=== PATIENT | male | born 1975 | race Caucasian/White ===

== ENCOUNTER 2021-12-12 21:14 | Emergency (ER) | payer BC, SELFPAY ==
[2021-12-12 21:15] VITALS: BP 170/100; PULSE 105; RESP 18; TEMP 37.3; O2SAT 100; BMI 36.9
[2021-12-12 21:17] VITALS: BP 170/100; PULSE 105; RESP 18; TEMP 37.3; O2SAT 100
--- NOTE | 2021-12-12 21:58 | ED.VIS.GI ---
HPI HPI - GI History of Present Illness Chief Complaint: Abd Pain Narrative Narrative: 46-year-old male presenting with lower abdominal cramping and bloating. He states he had a lot of gas today. He states that this started this morning. Last evening he states he ate a cheeseburger, cheesy potatoes, corn on the cob. Today he woke up with gas and bloating. Today for lunch he decided to have a Micron[place] sausage sandwich which made his symptoms worse. He has mild nausea without vomiting. He admits to several episodes of diarrhea. He states that having a bowel movement makes it improved but that he gets gas again. He has tried nothing to alleviate his symptoms. He denies urinary complaints. No fevers or chills. He is concerned because his father had a history of diverticulitis. PFSH PFSH Home Medications amoxicillin 875 mg-potassium clavulanate 125 mg tablet 1 tab PO Q12H #24 tabs 12/12/21 [Rx Last Taken Unknown] ondansetron 4 mg disintegrating tablet 4 mg PO Q8H PRN nausea and vomiting #14 tabs 12/12/21 [Rx Last Taken Unknown] Allergy/AdvReac Type Severity Reaction Status Date / Time No Known Allergies Allergy Verified 12/12/21 21:17 Social History Smoking Status: Never smoker ROS ROS ED Constitutional Constitutional ED: Denies chills, fever(s) or subjective ENT ENT ED: Denies rhinorrhea or sore throat Cardiovascular Cardiovascular: Denies palpitations Respiratory/Chest Respiratory/Chest: Denies cough or dyspnea Gastrointestinal Gastrointestinal: Reports abdominal pain, diarrhea and nausea; Denies vomiting Genitourinary Genitourinary ED: Denies dysuria or hematuria Musculoskeletal Musculoskeletal: Denies arthralgias or back pain Integumentary Denies abscess Neurologic Neurologic: Denies headache(s) or paresthesias Psychiatric Psychiatric: Denies anxiety or depression EXAM Physical Exam Const Vital Signs: 12/12/21 21:15 12/12/21 21:17 Temperature 99.2 F H 99.2 F H Temperature Source Temporal Temporal Pulse Rate 105 H 105 H Respiratory Rate 18 18 Blood Pressure 170/100 H 170/100 H Blood Pressure Mean 123 Pulse Ox 100 100 Oxygen Delivery Method Room Air Room Air Positive well nourished General Appearance ED: NAD; Negative for pallor HEENT Reports moist mucous membranes and dry mucous membranes normocephalic and atraumatic Mouth ED: Yes dry mucous membranes Mouth: dry mucous membranes Eyes PERRL and EOMs intact bilaterally Resp normal respiratory effort and clear to auscultation bilaterally GI GI Narrative: Mild suprapubic tenderness. Abdomen soft. No peritoneal signs. Palpation: Negative for guarding, rigid or hepatomegaly Back/Spine no CVA tenderness Neuro CN's II-XII intact bilaterally Sensorium / Orientation: alert and oriented to person Motor Exam: strength 5/5 throughout Psych mental status grossly normal and thought process normal Skin General Skin Exam: Negative for jaundice or pallor MDM MDM MDM Narrative Medical decision making narrative: CBC shows a leukocytosis of 13.5. Hemoglobin hematocrit are stable. Platelets are normal. Renal function and electrolytes within normal limits. Because he has elevated white blood cell count I will obtain a CT of the abdomen pelvis. Patient was given Zofran and Bentyl initially. CT of the abdomen pelvis shows acute uncomplicated sigmoid diverticulitis. Patient counseled on findings. We talked about diet changes and he is college and standing. He started Augmentin with first dose in the ED. He will be given a prescription for this and Zofran for home.. He was given follow-up with Dr. Case. Patient over discharge. Impression: 1. Acute uncomplicated sigmoid diverticulitis 2. Leukocytosis Lab Data Attestation: I reviewed the patient's lab results. Labs: Laboratory Results - last 24 hr 12/12/21 12/12/21 21:50 21:50 WBC 13.5 H RBC 4.87 Hgb 14.4 Hct 43.3 MCV 88.9 MCH 29.6 MCHC 33.3 RDW Std Deviation 41.2 RDW Coeff of Girish 12.5 Plt Count 249 MPV 10.4 Immature Gran % (Auto) 0.500 Neut % (Auto) 77.7 H Lymph % (Auto) 11.8 L [place] % (Auto) 8.1 Eos % (Auto) 1.6 Baso % (Auto) 0.3 Absolute Neuts (auto) 10.5 H Absolute Lymphs (auto) 1.60 Nucleated RBC % 0 Sodium 139 Potassium 3.8 Chloride 106 Carbon Dioxide 27.0 Anion Gap 6 BUN 18 Creatinine 0.97 Estim Creat Clear Calc 97.18 Est GFR (MDRD) Af Amer 109 Est GFR (MDRD) Non-Af 90 BUN/Creatinine Ratio 18.6 Glucose 124 H Calcium 8.7 Radiography Diagnostic Testing: Clinical Impression(s) from Imaging Studies Abdomen/Pelvis CT 12/12/21 22:24 IMPRESSION: Acute uncomplicated sigmoid diverticulitis. Electronically Signed: Domingo Aponte DO at 23:03 EDT Reading Location ID and State: [facility] / [place] Tel , Service support , Discharge Plan Triage Chief Complaint: Abd Pain ED Provider: Bernard Wellington Dx/Rx/DC Orders Instructions: ED Diverticulitis Prescriptions: New amoxicillin-pot clavulanate 875-125 mg tablet 1 tab PO Q12H Qty: 24 0RF ondansetron 4 mg tablet,disintegrating 4 mg PO Q8H PRN (Reason: nausea and vomiting) Qty: 14 0RF Primary Care Provider: Care Physician,No Primary Referrals: Dread Case DO [STAFF PHYSICIAN] - 3-5 Days Care Physician,No Primary [Primary Care Provider] - Disposition Disposition: Home, Self Care
[2021-12-12] MEDS: Ondansetron ODT 4 MG Tablet PO (22:10)
[2021-12-12] MEDS: Dicyclomine 10 MG Capsule 20 MG PO (22:10)
[2021-12-12 22:14] LABS: Absolute Neutrophil Count 10.5 X10^3/uL (2.0-7.7); Basophil# 0.04 X10^3/uL; Basophil% 0.3 % (0-1); Eosinophil# 0.21 X10^3/uL; Eosinophils% 1.6 % (0-5); Hematocrit 43.3 % (40-54); Hemoglobin 14.4 g/dL (13.0-16.5); Lymphocyte % 11.8 % (19-41); Mean Corp Hgb Conc 33.3 g/dL (32-36); Mean Corpuscular Hgb 29.6 pg (27.0-32.0); Mean Corpuscular Volume 88.9 fL (80-94); Mean Platelet Vol. 10.4 fl (6.2-12.0); Monocyte# 1.09 X10^3/uL; Monocyte% 8.1 % (0-10); NRBC Flagged by Analyzer 0 % (0-5); Neutrophil % 77.7 % (47-70); Platelet Count 249 K/mm3 (150-450); RBC Distribution Width CV 12.5 % (11.6-14.6); RBC Distribution Width SD 41.2 fl (35.1-43.9); Red Blood Count 4.87 M/mm3 (4.6-6.2); White Blood Count 13.5 K/mm3 (4.4-11.0)
[2021-12-12 22:20] LABS: Anion Gap 6 (5-15); BUN 18 mg/dL (7-18); BUN/Creat Ratio 18.6 RATIO (10-20); Calcium,Total 8.7 mg/dL (8.5-10.1); Chloride 106 mmol/L (98-107); Creatinine, Serum 0.97 mg/dL (0.70-1.30); EST Glomerular Filtration Rate 90 mL/min (>60); Est Glom Filt Rate - Afr Amer 109 mL/min (>60); Estimated Creatinine Clearance 97.18 ml/min; Glucose 124 mg/dL (74-106); Potassium 3.8 mmol/L (3.5-5.1); Sodium Level 139 mmol/L (136-145)
--- NOTE | 2021-12-12 22:24 | CT_ITS ---
STUDY: CT ABDOMEN AND PELVIS WITH CONTRAST REASON FOR EXAM: Male, 46 years old. abdominal pain RADIATION DOSAGE (If Supplied By Facility): CTDIvol = ( 16.56 ) mGy, DLP = ( 1268.57 ) mGycm TECHNIQUE: Transaxial images were obtained from the dome of the diaphragm to the symphysis pubis without oral contrast. IV 100mL Isovue-370 was administered. Sagittal and coronal images were reconstructed. Individualized dose optimization techniques were used for this CT. COMPARISON: None. FINDINGS: The visualized lung bases are unremarkable. The visualized portions of the heart are within normal limits. Normal liver. Normal gallbladder and extrahepatic biliary system. Normal spleen. Normal pancreas. Normal bilateral adrenal glands. Normal right kidney. Normal left kidney. There is a small hiatal hernia. Normal small intestine. There is diverticulosis, with thickening of the colon wall, and pericolonic inflammation changes consistent with acute diverticulitis. The appendix is visualized and appears normal. Normal abdominal aorta. Normal inferior vena cava. Normal retroperitoneum. Normal urinary bladder. Normal abdominal wall. Normal osseous structures. CT/Abdomen/Pelvis W IV Cont ONLY IMPRESSION: Acute uncomplicated sigmoid diverticulitis. Electronically Signed: Domingo Aponte DO at 23:03 EDT ,
[2021-12-12 23:15] VITALS: PULSE 88; RESP 14; O2SAT 99
[2021-12-12] MEDS: Amox/Clavulanate 875 MG Tablet PO (23:31)
== END 2021-12-12 23:51 | disposition home or self-care (01) ==
PROVIDERS: Emergency Provider Student in an Organized Health Care Education/Training Program; Visit Provider Student in an Organized Health Care Education/Training Program
DX: K57.32 Diverticulitis of large intestine without perforation or abscess without bleeding (principal); D72.829 Elevated white blood cell count, unspecified
CPT/HCPCS: 74177; 80048; 85025; 99283; Q9967; A4216

== ENCOUNTER 2022-04-05 12:11 | Day surgery (SDC) | payer BC, SELFPAY ==
[2022-04-05] VITALS (9 sets, daily range): BP systolic 128–183; BP diastolic 95–123; PULSE 61–109; RESP 16–18; TEMP 36.4–36.8; O2SAT 98–100; BMI 33.2
[2022-04-05] MEDS: Lactated Ringers 1,000 ML 15 ML IV (12:57)
--- NOTE | 2022-04-05 13:15 | COLBX_PTH ---
PATIENT: JOHN KIRBY LOC: EN U#:[id number] AGE/SX: 46/M ROOM: RE04/05/[address]: Dr. Dread Case DO : 1975 BED: DIS: 04/05/2022 SPEC #: [id number] RECD: 04/05/22 16:13 STATUS: KELLIE NADIRA #: [id number] SACHA: 04/05/22 13:[address]: Dread Case DEPT: SURGICAL PATHOLOGY RECD BY: Daiana Hidalgo ENTERED: 04/06/22 08:27 SP TYPE: COLON BX OTHR DR: Eusebia Primary Care Phys Tissues: A - Sigmoid colon biopsy B - Rectum, NOS Procedures: Surgery Specimen Level IV HEADER OPERATION: Colonoscopy (MAC) and biopsy PRE-OP DIAGNOSIS: Diverticulitis TISSUE SUBMITTED: A ? Sigmoid colon biopsy, B ? Rectal polyp MICROSCOPIC DIAGNOSIS A. Sigmoid colon, biopsy: No pathologic change. B. Rectal polyp, biopsy: Lymphangiectasia. AM:rick 04/07/2022 MICROSCOPIC DESCRIPTION Slides are reviewed. GROSS DESCRIPTION A - Received in fixative is one container labeled with the patient's name and designated sigmoid colon biopsy. The specimen consists of two irregular fragments of light zaragoza soft tissue that in aggregate measure 0.6 x 0.3 x 0.1 cm. The specimen is totally submitted in one cassette. B - Received in fixative is one container labeled with the patient's name and designated rectal polyp. The specimen consists of multiple irregular fragments of light zaragoza soft tissue that in aggregate measure 1 x 0.3 x 0.1 cm. The specimen is totally submitted in one cassette. / AM:rick 04/06/2022 TC:5 CPT: 91781 x2
--- NOTE | 2022-04-05 13:17 | HP.PCM_ITS ---
History and Physical Date of Admission: 04/05/22 JOHN KIRBY, is a 46 M who presents to the office today for f/u ED visit for diverticulitis on 12/12/21. He had presented with abdominal cramping, bloating, gas, diarrhea. He was treated with augmentin. This was his first bout of diverticulitis. 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 He has changed his diet--no red meat, has changed to chicken, looked up diet recommendations online. His father had diverticulitis, needed surgery for it. Pt denies hx of constipation, was having 2-3 BMs per day. Now says one BM per day, stools are soft--thinks fewer BMs since he is eating less. BM soon after eating greasy foods now, some urgency. Denies abdominal pain but he has twinges of the pain he had at the ED, has had about 3 bouts since the ED. Heartburn maybe once a month at the most. Denies nausea, vomiting, dysphagia. No diarrhea or constipation, no melena or hematochezia. 12/12/21 CT/Abdomen/Pelvis W IV Cont ONLY IMPRESSION: Acute uncomplicated sigmoid diverticulitis. ROS Const Constitutional: Positive for weight change; No fatigue ENT ENT: No difficulty swallowing Gastro GI: Positive for abdominal pain, bloating, change in bowel habits, diarrhea and excessive flatus; No belching, change in stool character, coffee ground emesis, constipation, cramping, heartburn, difficulty swallowing, feeling full early, incontinent of stools, Vomiting blood/hematemesis, Blood in stool, loose stools, Black,tarry stools, nausea/dyspepsia, pain with swallowing, vomiting or other Musc Musculoskeletal: Positive for stiffness; No joint pain Skin Skin: No yellowing of the eye or itchy eyes Psych Psychiatric: No anxiety and No depression Endo Endocrine: Positive for weight change; No fatigue Aller/Imm Allergy/Immunologic: No itchy eyes Rico/Lymp Hematologic/Lymphatic: No easy bleeding or easy bruising Exam Const General: cooperative, healthy appearing and no acute distress Nutritional Appearance: obese Orientation: alert, awake and oriented x3 HENMT Head: normal to inspection Eyes General: appearance normal, both eyes and all related structures Chest Chest palpation & inspection: normal inspection of the chest Resp Effort & Inspection: normal respiratory effort GI Inspection: normal to inspection Palpation: soft, no masses and nontender Skin General: no jaundice Quality Reporting Tobacco Screening ([facility]) Smoking Status: Never smoker Assessment and Plan Assessment and Plan (1) Diverticulitis: ?Status:?Acute ?Plan: Discussed diagnosis, discussed possible SCAD Biochemical w/u--blood and stool tests Rx mesalamine 2.4 g daily x 4 wks, then 1.2 g daily x 4 wks Take daily probiotic Schedule colonoscopy ? ? ? Orders: Orders CRP 01/31/22 K57.92 - Diverticulitis of inte malgorz[place], part unspecified, without perforation or abscess without bleeding ? Erythrocyte Sed Rate 01/31/22 K57.92 - Diverticulitis of inte malgorz[place], part unspecified, without perforation or abscess without bleeding ? INOCENCIO Comprehensive Panel 01/31/22 K57.92 - Diverticulitis of inte malgorz[place], part unspecified, without perforation or abscess without bleeding ? Calprotectin, Stool 01/31/22 K57.92 - Diverticulitis of inte malgorz[place], part unspecified, without perforation or abscess without bleeding ? Stool Lactoferrin/WBC 01/31/22 K57.92 - Diverticulitis of inte malgorz[place], part unspecified, without perforation or abscess without bleeding, K58.9 - Irritable bowel syndrome without diarrhea ? ANCA 01/31/22 K57.92 - Diverticulitis of inte malgorz[place], part unspecified, without perforation or abscess without bleeding ? Celiac Disease Profile 01/31/22 K57.92 - Diverticulitis of inte malgorz[place], part unspecified, without perforation or abscess without bleeding ? Comprehensive Metabolic Profil 01/31/22 K57.92 - Diverticulitis of inte malgorz[place], part unspecified, without perforation or abscess without bleeding ? LDH 01/31/22 K57.92 - Diverticulitis of inte malgorz[place], part unspecified, without perforation or abscess without bleeding ? CBC W/Diff, Automated 01/31/22 K57.92 - Diverticulitis of inte malgorz[place], part unspecified, without perforation or abscess without bleeding ? Medications: New mesalamine ?take 2 tablets by mouth daily x 4 weeks, then 1 tablet daily x 4 weeks 84 tabs 0RF SCAD ? ? I have examined the patient and the H&P has been reviewed. There are no clinical changes since date of exam.
--- NOTE | 2022-04-05 14:03 | OP.COLON_ITS ---
Patient Name: Javier Bautista Procedure Date: 04/05/2022 1:15 PM Date of : 1975 Age: 46 Procedure: Colonoscopy Indications: Abdominal pain in the left lower quadrant, Abnormal CT of the GI tract, Diverticulitis Providers: Dread Case DO Medicines: Monitored Anesthesia Care Patient Profile: This is a 46 year old male. Refer to note in patient chart for documentation of history and physical. Last Colonoscopy: none. The patient's first colonoscopy is today. Complications: No immediate complications. Procedure: Pre-Anesthesia Assessment: - Prior to the procedure, a History and Physical was performed, and patient medications and allergies were reviewed. The risks and benefits of the procedure and the sedation options and risks were discussed with the patient. All questions were answered and informed consent was obtained. Patient identification and proposed procedure were verified by the physician. Mental Status Examination: alert and oriented. Airway Examination: normal oropharyngeal airway and neck mobility. Respiratory Examination: clear to auscultation. CV Examination: normal. Prophylactic Antibiotics: The patient does not require prophylactic antibiotics. Prior Anticoagulants: The patient has taken no previous anticoagulant or antiplatelet agents. ASA Grade Assessment: II - A patient with mild systemic disease. After reviewing the risks and benefits, the patient was deemed in satisfactory condition to undergo the procedure. The anesthesia plan was to use monitored anesthesia care (MAC). Immediately prior to administration of medications, the patient was re-assessed for adequacy to receive sedatives. The heart rate, respiratory rate, oxygen saturations, blood pressure, adequacy of pulmonary ventilation, and response to care were monitored throughout the procedure. The physical status of the patient was re-assessed after the procedure. After I obtained informed consent, the scope was passed under direct vision. Throughout the procedure, the patient's blood pressure, pulse, and oxygen saturations were monitored continuously. The colonoscope was introduced through the anus and advanced to the cecum, identified by appendiceal orifice and ileocecal valve. The colonoscopy was performed without difficulty. The patient tolerated the procedure well. The quality of the bowel preparation was good. Scope In: 1:42:45 PM Scope Withdrawal Time 0 hours 12 minutes 29 seconds Scope Out: 1:57:35 PM Total Procedure Duration Time 0 hours 14 minutes 50 seconds Findings: The perianal and digital rectal examinations were normal. A 5 mm polyp was found in the rectum. The polyp was sessile. The polyp was removed with a cold snare. Resection and retrieval were complete. Verification of patient identification for the specimen was done. Estimated blood loss was minimal. An area of mildly congested mucosa was found in the sigmoid colon. Biopsies were taken with a cold forceps for histology. Verification of patient identification for the specimen was done. Estimated blood loss was minimal. Impression: - One 5 mm polyp in the rectum, removed with a cold snare. Resected and retrieved. - Congested mucosa in the sigmoid colon. Biopsied. Recommendation: - Discharge patient to home. - Resume previous diet. - Continue present medications. - Await pathology results. - Repeat colonoscopy in 5 years for surveillance. - Return to GI office. Procedure Code(s): --- Professional --- 74674, Colonoscopy, flexible; with removal of tumor(s), polyp(s), or other lesion(s) by snare technique 26015, 59, Colonoscopy, flexible; with biopsy, single or multiple CPT copyright 2017 [employer]. All rights reserved. The codes documented in this report are preliminary and upon roll dough divider review may be revised to meet current compliance requirements. Dread Case DO 04/05/2022 2:03:18 PM This report has been signed electronically. Number of Addenda: 0 Note Initiated On: 04/05/2022 1:15 PM
--- NOTE | 2022-04-05 14:04 | OP.CCLET_ITS ---
04/05/2022 No Primary Care Physician Re : Colonoscopy procedure for Javier Bautista Dear Care Physician This procedure was performed on Tuesday, April 05, 2022. My impressions and recommendations are as follows: Impressions : - One 5 mm polyp in the rectum, removed with a cold snare. Resected and retrieved. - Congested mucosa in the sigmoid colon. Biopsied. Recommendations : - Discharge patient to home. - Resume previous diet. - Continue present medications. - Await pathology results. - Repeat colonoscopy in 5 years for surveillance. - Return to GI office. My findings are described in the full procedure note, which is enclosed. If I can be of further assistance, please feel free to contact me at . Sincerely, Dread Case, 04/05/2022 2:03:18 PM This report has been signed electronically.
== END 2022-04-05 14:59 | disposition home or self-care (01) ==
LOC: EN 12:15 → AC 12:15
PROVIDERS: Visit Provider Internal Medicine Gastroenterology
PROC: 0DJD8ZZ Inspection of Lower Intestinal Tract, Via Natural or Artificial Opening Endoscopic (ICD-10-PCS; CPT 45378; principal; 2022-04-05 13:10)
DX: K63.89 Other specified diseases of intestine (principal); K62.1 Rectal polyp; K63.5 Polyp of colon; E66.9 Obesity, unspecified; G47.30 Sleep apnea, unspecified; Z87.891 Personal history of nicotine dependence; Z68.33 Body mass index [BMI] 33.0-33.9, adult
CPT/HCPCS: 45380; 45385; 88305; J7120; J2405

== ENCOUNTER 2022-04-05 17:57 | Emergency (ER) | payer BC, SELFPAY ==
[2022-04-05 17:59] VITALS: BP 133/107; PULSE 102; RESP 16; TEMP 37.2; O2SAT 99; BMI 33.0
--- NOTE | 2022-04-05 19:07 | EDS_ITS ---
HPI History of Present Illness Chief Complaint: Other, Pain/Inj Informant: patient and spouse/S.O. Narrative Narrative: Patient has soreness at the base of his mouth and posterior throat after having a colonoscopy earlier today. He states all anesthesia was done through the vein. He knows there was oxygen in his nose. But he was out for the whole procedure. He evidently did vomit at the end and he vomited once at home. But it was evidently not especially forceful. He has had soreness in his throat ever since. He had trouble talking initially although he is talking to me pretty well now. He states he can breathe through his nose but it hurts to deborah the through his mouth. He denies any pain below the sternal notch. There is no pain in his chest or back. No trouble breathing. He is not having abdominal pain. I did review the operative report. It looks like MAC was planned. I do not know if he ever had an LMA or I-gel during the procedure. I am calling the irs agent to see if he knows details about airway management that may have occurred. [facility] Medical History Arthritis Chews tobacco Heart murmur History of diverticulitis Hypertension Sleep apnea Wears glasses Home Medications acetaminophen 160 mg tablet 325 mg PO Q6H PRN Pain 04/01/22 [History Last Taken Unknown] esomeprazole magnesium 20 mg capsule,delayed release (Nexium) 20 mg PO DAILY #20 caps 04/05/22 [Rx Last Taken Unknown] hydrocodone-acetaminophen 5-325mg 5mg-325mg 1 tab PO Q6H PRN pain 3 days #10 tabs 04/05/22 [Rx Last Taken Unknown] Allergy/AdvReac Type Severity Reaction Status Date / Time No Known Allergies Allergy Verified 04/05/22 17:59 Family History Grandfather Colon cancer Hypertension Hyperlipidemia Father Hypertension Hyperlipidemia Surgical History History of knee surgery Social History Smoking Status: Former smoker ROS ROS ED Constitutional Constitutional ED: Denies chills, fever(s) or sweats Eyes Eyes: Denies blurry vision, change in vision or diplopia ENT ENT ED: Reports sore throat and other Details: See history of present illness peer ; Denies ear pain or rhinorrhea Cardiovascular Cardiovascular: Denies chest pain Respiratory/Chest Respiratory/Chest: Reports other Details: Patient did cough earlier after the procedure but is not coughing now. He is not short of breath. ; Denies cough, dyspnea or sputum Gastrointestinal Gastrointestinal: Reports vomiting and other Details: Patient evidently vomited once at the end of the procedure and once at home. But he is not nauseated now. ; Denies abdominal pain Musculoskeletal Musculoskeletal: Reports neck pain and other Details: Some soreness at the base of his throat in the anterior neck. It stops above the sternal notch ; Denies back pain Integumentary Denies rash Neurologic Neurologic: Denies paresthesias or weakness Hematologic/Lymphatic Hematologic/Lymphatic: Denies easy bleeding or easy bruising Allergic/Immunologic Allergic/Immunologic ED: Reports other Details: No rash swelling itching or other symptoms other than his throat. ; Denies tongue swelling or urticaria EXAM Physical Exam Const Vital Signs: 04/05/22 17:59 04/05/22 18:43 04/05/22 19:37 Temperature 98.9 F Temperature Source Temporal Pulse Rate 102 H Respiratory Rate 16 18 Respiratory Effort Normal Non-Labored Respiratory Pattern Normal Blood Pressure 133/107 H Blood Pressure Mean 115 Pulse Ox 99 Oxygen Delivery Method Room Air Positive well nourished and well developed Constitutional Narrative: Patient sitting quietly in bed General Appearance ED: well developed and NAD; Negative for cyanotic, diaphoretic or pallor HEENT HEENT Narrative: Posterior pharynx is a bit erythematous. Tonsils look normal. No asymmetry. His uvula does look mildly enlarged. His voice is actually sounds pretty normal. He can breathe through his mouth or nose. No swelling of the tongue or base of the tongue. No external facial swelling or subcutaneous air. Eyes PERRL and EOMs intact bilaterally Neck no lymphadenopathy and supple Neck Narrative: No swelling. No significant tenderness. No subcutaneous air. No shifting of trachea. Chest Wall inspection of chest normal and palpation of chest normal Chest Narrative: No subcu air in the upper chest or back area Resp normal respiratory effort Resp Narrative: Lungs are clear bilaterally. He takes smooth easy breaths. Saturations are 99% on room air Cardio regular rate, regular rhythm and no murmurs Rate: other Other Details: No crunch or muffled heart tones. Rhythm: Negative for abnormal rhythm GI normal to inspection, nondistended, normoactive bowel sounds and non-tender GI Narrative: Despite his procedure today, his exam is overall benign Palpation: soft Back/Spine no CVA tenderness Neuro oriented x3 Psych mental status grossly normal Skin no rashes or lesions noted General Skin Exam: Negative for jaundice or pallor MDM MDM MDM Narrative Medical decision making narrative: Patient's imaging shows no cause of his symptoms other than some mild esophagitis. His white count has a nonspecific mild elevation at 12.6. Platelets hemoglobin normal. Electrolytes normal. All the above findings including CTs were explained to the patient. I will give him a little something for pain for a day or 2. We will start him on a PPI. I will try some GI cocktail here. He will follow-up with his irs agent Lab Data Attestation: I reviewed the patient's lab results. Labs: Laboratory Results - last 24 hr 04/05/22 04/05/22 19:45 19:45 WBC 12.6 H RBC 5.45 Hgb 16.5 Hct 47.4 MCV 87.0 MCH 30.3 MCHC 34.8 RDW Std Deviation 39.8 RDW Coeff of Girish 12.7 Plt Count 257 MPV 9.9 Immature Gran % (Auto) 0.400 Neut % (Auto) 76.2 H Lymph % (Auto) 14.0 L [place] % (Auto) 7.7 Eos % (Auto) 1.3 Baso % (Auto) 0.4 Absolute Neuts (auto) 9.6 H Absolute Lymphs (auto) 1.77 Nucleated RBC % 0 Sodium 141 Potassium 4.0 Chloride 107 Carbon Dioxide 29.0 Anion Gap 5 BUN 11 Creatinine 1.15 Estim Creat Clear Calc 81.97 Est GFR (MDRD) Af Amer 89 Est GFR (MDRD) Non-Af 73 BUN/Creatinine Ratio 9.6 L Glucose 93 Calcium 9.2 Radiography Diagnostic Testing: Clinical Impression(s) from Imaging Studies Chest CT 04/05/22 19:37 IMPRESSION: Small hiatal hernia in association with mild concentric thickening of the mitchell of the distal esophagus most consistent with esophagitis.. No evidence for dominique perforation of the esophagus. No definitive evidence for Alexa-Adrian tear however this may be better assessed with oral contrast if clinically warranted Electronically Signed: Sachin Beaulieu MD at 21:25 EDT , Soft Tissue Neck CT 04/05/22 19:37 IMPRESSION: No abnormal adnexal mass or pathologic cervical adenopathy utilizing CT size and morphologic criteria. Endoscopy recommended for more definitive evaluation if clinically indicated Left maxillary sinus disease likely chronic and degenerative changes of the cervical spine Electronically Signed: Sachin Beaulieu MD at 21:24 EDT , CT scan with contrast was done of the chest and neck. CT of the neck showed no acute process. CT of the chest showed findings of some distal esophagitis. But there is no sign of perforation. No obvious dissection or pulmonary embolism was noted although the study was not timed specifically for that. Discharge Plan Triage Chief Complaint: Other, Pain/Inj ED Provider: Marcus Deshpande Dx/Rx/DC Orders Clinical Impression: Odynophagia, Esophagitis Instructions: Esophagitis Prescriptions: New hydrocodone-acetaminophen 5-325 mg tablet 1 tab PO Q6H PRN (Reason: pain) 3 Days Qty: 10 0RF esomeprazole magnesium [Nexium] 20 mg capsule,delayed release(DR/EC) 20 mg PO DAILY Qty: 20 0RF No Action acetaminophen 160 mg Tablet 325 mg PO Q6H PRN (Reason: Pain) Primary Care Provider: Care Physician,No Primary Referrals: Friend,Dread, DO [Med Staff - Active Staff] - As soon as possible Care Physician,No Primary [Primary Care Provider] - Disposition Disposition: Home, Self Care
[2022-04-05 19:37] VITALS: RESP 18
--- NOTE | 2022-04-05 19:37 | CT_ITS ---
STUDY: CT SOFT TISSUE NECK WITH CONTRAST REASON FOR EXAM: Male, 46 years old. pain RADIATION DOSAGE (If Supplied By Facility): CTDIvol = ( 14.30 ) mGy, DLP = ( 389.22 ) mGycm TECHNIQUE: The patient was scanned in a multi-detector CT scanner. High resolution transaxial imaging was performed following intravenous administration of IV 100mL [id number]-300. Sagittal and coronal images were reconstructed. Individualized dose optimization techniques were used for this CT. COMPARISON: None. FINDINGS: Normal bilateral parotid glands. Normal bilateral occupational health physician spaces. Normal bilateral parapharyngeal spaces. Normal bilateral carotid spaces. Normal bilateral sublingual and submandibular glands and spaces. Normal visualized nasopharynx. Normal retropharyngeal space. Normal perivertebral space. Normal visualized bilateral faucial tonsils. The visualized tongue, tongue base and oropharynx are normal. The visualized cervical lymph nodes (levels I-) are within normal size limits, and maintain normal morphology. There is no demonstrated solid or cystic mass lesion. There is no abnormal contrast enhancement. Normal epiglottis, bilateral vallecula and hypopharynx. The pre-epiglottic and paraglottic adipose spaces are normal. Normal visualized bilateral piriform sinuses, aryepiglottic folds, vocal cords, and arytenoid-cricoid articulations. Normal subglottic trachea. Normal bilateral lobes of the thyroid gland. Normal visualized pulmonary apices. Polypoid mucosal thickening in left maxillary sinus. Cervical spine demonstrates mild degenerative changes CT/Soft Tissue Neck WITH Contrast IMPRESSION: No abnormal adnexal mass or pathologic cervical adenopathy utilizing CT size and morphologic criteria. Endoscopy recommended for more definitive evaluation if clinically indicated Left maxillary sinus disease likely chronic and degenerative changes of the cervical spine Electronically Signed: Sachin Beaulieu MD at 21:24 EDT ,
--- NOTE | 2022-04-05 19:37 | CT_ITS ---
INDICATION: pain post vomiting EXAMINATION: CT CHEST WITH CONTRAST - CT Chest W/ Contrast Injection TECHNIQUE: Helically acquired images were obtained of the chest following IV contrast. A radiation dose optimization technique was used for this scan. IV Contrast dosage and agent: COMPARISON: None. FINDINGS: LUNGS, PLEURA AND LARGE AIRWAYS: No masses, consolidation, or edema. No pleural effusion or thickening. No pneumothorax. THYROID: No thyroid lesions. HEART AND PERICARDIUM: Heart size is normal. No pericardial effusion. VESSELS: Thoracic aorta is not dilated. No aortic dissection. No obvious central pulmonary embolism although this study was not performed with the pulmonary embolism protocol. MEDIASTINUM AND ELE: No mediastinal or hilar adenopathy. Small hiatal hernia is noted. There is thickening of the mitchell of the distal esophagus which may be consistent with nonspecific esophagitis UPPER ABDOMEN: No acute pathology. BONES: Dorsal spine demonstrates degenerative change No suspicious lytic or blastic abnormality. CT/Chest WITH Contrast IMPRESSION: Small hiatal hernia in association with mild concentric thickening of the mitchell of the distal esophagus most consistent with esophagitis.. No evidence for dominique perforation of the esophagus. No definitive evidence for Alexa-Adrian tear however this may be better assessed with oral contrast if clinically warranted Electronically Signed: Sachin Beaulieu MD at 21:25 EDT Reading Location ID and State: [facility] / [place] , Service support ,
[2022-04-05] MEDS: Morphine 4 MG/ML Syringe IV (19:47)
[2022-04-05] MEDS: Ondansetron 4 MG/2 ML Vial IV (19:48)
[2022-04-05 19:54] LABS: Absolute Lymphocyte Count 1.77 X10^3/uL (0.83-4.51); Absolute Neutrophil Count 9.6 X10^3/uL (2.0-7.7); Basophil# 0.05 X10^3/uL; Basophil% 0.4 % (0-1); Eosinophil# 0.16 X10^3/uL; Eosinophils% 1.3 % (0-5); Hematocrit 47.4 % (40-54); Hemoglobin 16.5 g/dL (13.0-16.5); Lymphocyte # 1.77 X10^3/ul (0.83-4.51); Mean Corp Hgb Conc 34.8 g/dL (32-36); Mean Corpuscular Hgb 30.3 pg (27.0-32.0); Mean Platelet Vol. 9.9 fl (6.2-12.0); Monocyte# 0.97 X10^3/uL; Monocyte% 7.7 % (0-10); NRBC Flagged by Analyzer 0 % (0-5); Neutrophil % 76.2 % (47-70); Platelet Count 257 K/mm3 (150-450); RBC Distribution Width CV 12.7 % (11.6-14.6); RBC Distribution Width SD 39.8 fl (35.1-43.9); Red Blood Count 5.45 M/mm3 (4.6-6.2); White Blood Count 12.6 K/mm3 (4.4-11.0)
[2022-04-05 20:15] LABS: Anion Gap 5 (5-15); BUN 11 mg/dL (7-18); BUN/Creat Ratio 9.6 RATIO (10-20); Calcium,Total 9.2 mg/dL (8.5-10.1); Chloride 107 mmol/L (98-107); Creatinine, Serum 1.15 mg/dL (0.70-1.30); EST Glomerular Filtration Rate 73 mL/min (>60); Est Glom Filt Rate - Afr Amer 89 mL/min (>60); Estimated Creatinine Clearance 81.97 ml/min; Glucose 93 mg/dL (74-106); Sodium Level 141 mmol/L (136-145)
[2022-04-05 21:00] VITALS: RESP 18
[2022-04-05 22:16] VITALS: RESP 16
[2022-04-05] MEDS: Mag Hydrox/Al Hydrox/Simeth 30 ML UDC PO (22:54)
== END 2022-04-05 22:58 | disposition home or self-care (01) ==
PROVIDERS: Emergency Provider Emergency Medicine; Visit Provider Emergency Medicine
DX: K20.90 Esophagitis, unspecified without bleeding (principal); R13.10 Dysphagia, unspecified; R11.10 Vomiting, unspecified; I10 Essential (primary) hypertension; Z87.891 Personal history of nicotine dependence
CPT/HCPCS: 70491; 71260; 80048; 85025; 99283; J7040; Q9967; A4216; J2405; J3490